=== PATIENT | female | born 1995 | race African-American/Black ===

== ENCOUNTER 2021-07-30 05:50 | Inpatient (IN) | payer OTHER ==
[2021-07-30] MEDS ORDERED: SODIUM CHLORIDE 0.9% 500 ML INFUS.BAG IV ONE (06:37)
[2021-07-30] MEDS ORDERED: ACETAMINOPHEN 1000 MG/100 ML VIAL (NON FORMULARY) IVPB ONE (06:37)
[2021-07-30] MEDS ORDERED: ONDANSETRON 4 MG/2 ML VIAL IVPUSH ONE (06:37)
[2021-07-30] MEDS ORDERED: ONDANSETRON 4 MG/2 ML VIAL ONE (06:58)
[2021-07-30] MEDS ORDERED: ACETAMINOPHEN INJECTION 100 ML IVPB ONE (06:58)
[2021-07-30 07:07] LABS: BASO % 0.7 % (0-2.0); EOS % 1.8 % (0-4.5); HEMATOCRIT 33.1 % (32.4-45.2); LYMPH % 50.9 % (8-40); MCH 27.7 pg (25.7-33.7); MCHC 33.3 g/dl (32.0-36.0); MEAN CELL VOLUME 83.1 fl (80-96); MONO % 11.4 % (3.8-10.2); NEUT % 35.2 % (42.8-82.8); PLATELET COUNT 163 10^3/uL (134-434); RBC 3.98 M/mm3 (3.60-5.2); RDW 13.7 % (11.6-15.6); WHITE BLOOD COUNT 3.6 K/mm3 (4.0-10.0)
[2021-07-30 07:14] LABS: INR 0.96 (0.83-1.09); PROTHROMBIN TIME (PATIENT) 11.6 SEC (9.7-13.0)
[2021-07-30 07:17] LABS: ACTIVATED PTT 30.6 SECONDS (25.2-36.5)
[2021-07-30 07:23] LABS: ALBUMIN 3.3 g/dl (3.4-5.0); CALCIUM 7.7 mg/dL (8.5-10.1)
[2021-07-30 07:24] LABS: BLOOD UREA NITROGEN 6.3 mg/dL (7-18)
[2021-07-30 07:27] LABS: CREATININE 0.6 mg/dL (0.55-1.3)
[2021-07-30 07:28] LABS: BILIRUBIN,TOTAL 0.2 mg/dL (0.2-1)
[2021-07-30 07:32] LABS: TOT PROT 7.4 g/dl (6.4-8.2)
[2021-07-30] MEDS ORDERED: morphine CARPU-JECT 2 MG/1 ML DISP.SYRIN IVPUSH ONE ×2 (08:28→12:40)
[2021-07-30 08:54] LABS: EPI CELLS 3 /uL (0-25.1); HYALINE CASTS 0 /uL (0-3.1); PH,URINE 7.5 (5.0-8.0); URINE APPEARANCE CLEAR; URINE BACTERIA 57 /uL (0-1359); URINE BILIRUBIN NEGATIVE (NEGATIVE); URINE COLOR YELLOW; URINE GLUCOSE (UA) NEGATIVE (NEGATIVE); URINE KETONE NEGATIVE (NEGATIVE); URINE LEUK ESTERASE NEGATIVE (NEGATIVE); URINE NITRITE NEGATIVE (NEGATIVE); URINE PROTEIN NEGATIVE (NEGATIVE); URINE RBC 3 /uL (0-23.9); URINE UROBILINOGEN 0.2 mg/dL (0.2-1.0); URINE WBC 9 /uL (0-25.8)
[2021-07-30] MEDS ORDERED: MORPHINE SULFATE 2 MG/ML VIAL ONE ×2 (09:00→12:57)
[2021-07-30 14:34] LABS: BLOOD UREA NITROGEN 4.2 mg/dL (7-18)
[2021-07-30 14:38] LABS: CREATININE 0.6 mg/dL (0.55-1.3)
[2021-07-30] MEDS ORDERED: MORPHINE SULFATE 2 MG/ML VIAL IVPUSH PRN (15:28)
[2021-07-30] MEDS ORDERED: ONDANSETRON 4 MG/2 ML VIAL IVPUSH PRN (15:30)
[2021-07-30] MEDS ORDERED: POLYETHYLENE GLYCOL 3350 119 GM BTL PO SCH (15:45)
[2021-07-30] MEDS: SODIUM CHLORIDE 1,000 ML IV SCH (16:15)
[2021-07-30] MEDS ORDERED: ALBUTEROL SO4 HFA INHALER IH PRN (16:27)
[2021-07-30] MEDS ORDERED: DOCUSATE SODIUM 100 MG CAPSULE (FP) PO ONE (16:45)
[2021-07-30] MEDS: POLYETHYLENE GLYCOL (HEALTHYLAX) 3350 17 GM PACKET PO SCH (19:45)
[2021-07-30] MEDS: DOCUSATE SODIUM 100 MG CAPSULE (FP) PO SCH (19:45)
[2021-07-30] MEDS: HYDROmorphone HCL 2 MG TABLET PO PRN (20:39)
[2021-07-30] MEDS ORDERED: SENNOSIDES 8.6MG TABLET (FP) PO SCH ×2 (22:00→22:14)
[2021-07-30] MEDS: SENNOSIDES 8.6MG TABLET (FP) PO SCH ×2 (22:24→22:25)
[2021-07-30] MEDS: MONTELUKAST NA 10 MG TABLET PO SCH (22:25)
[2021-07-30] MEDS: BICTEGRAV/EMTRICIT/TENOFOV (BIKTARVY) 50-200-25 MG TABLET PO SCH (22:26)
[2021-07-31] MEDS: HYDROmorphone HCL 2 MG TABLET PO PRN ×2 (06:04→11:37)
[2021-07-31 09:31] LABS: HEMATOCRIT 34.4 % (32.4-45.2); HEMOGLOBIN 11.5 GM/dL (10.7-15.3); MCH 27.9 pg (25.7-33.7); MCHC 33.4 g/dl (32.0-36.0); MEAN CELL VOLUME 83.4 fl (80-96); MEAN PLT VOLUME 9.5 fl (7.5-11.1); PLATELET COUNT 166 10^3/uL (134-434); RBC 4.12 M/mm3 (3.60-5.2); RDW 13.4 % (11.6-15.6); WHITE BLOOD COUNT 3.1 K/mm3 (4.0-10.0)
[2021-07-31 09:54] LABS: CHLORIDE 106 mmol/L (98-107); SODIUM 138 mmol/L (136-145)
[2021-07-31 09:58] LABS: ALBUMIN 3.1 g/dl (3.4-5.0); CALCIUM 7.9 mg/dL (8.5-10.1); GLUCOSE,RANDOM 92 mg/dL (74-106)
[2021-07-31 09:59] LABS: ANION GAP 5 MMOL/L (8-16); CO2 27 mmol/L (21-32); MAGNESIUM 1.7 mg/dL (1.8-2.4)
[2021-07-31 10:01] LABS: CREATININE 0.8 mg/dL (0.55-1.3); PHOSPHOROUS 3.5 mg/dL (2.5-4.9); SGOT/AST 98 U/L (15-37); SGPT/ALT 111 U/L (13-61)
[2021-07-31 10:02] LABS: BILIRUBIN,TOTAL 0.8 mg/dL (0.2-1); TOT PROT 7.1 g/dl (6.4-8.2)
[2021-07-31] MEDS: TAMSULOSIN HCL 0.4 MG CAP PO SCH (10:03)
[2021-07-31] MEDS: DOCUSATE SODIUM 100 MG CAPSULE (FP) PO SCH (10:03)
[2021-07-31] MEDS: ENOXAPARIN NA (PORCINE) 40 MG/0.4 ML DISP.SYRIN SQ SCH (10:03)
[2021-07-31] MEDS: POLYETHYLENE GLYCOL (HEALTHYLAX) 3350 17 GM PACKET PO SCH (10:03)
[2021-07-31] MEDS: SENNOSIDES 8.6MG TABLET (FP) PO SCH ×2 (10:03→22:24)
[2021-07-31 10:04] LABS: ALK PHOS 70 U/L (45-117)
[2021-07-31 10:14] LABS: BLOOD UREA NITROGEN 2.4 mg/dL (7-18)
[2021-07-31] MEDS ORDERED: METOCLOPRAMIDE HCL INJECTION 10 MG/2 ML VIAL IVPUSH ONE (10:15)
[2021-07-31] MEDS ORDERED: PROCHLORPERAZINE INJECTION 10 MG/2 ML VIAL IVPB ONE (11:00)
[2021-07-31 11:25] LABS: LIPASE 148 U/L (73-393)
[2021-07-31] MEDS: BICTEGRAV/EMTRICIT/TENOFOV (BIKTARVY) 50-200-25 MG TABLET PO SCH (13:00)
[2021-07-31] MEDS: SODIUM CHLORIDE 1,000 ML IV SCH (15:50)
[2021-07-31] MEDS ORDERED: HYDROmorphone HCL 2 MG TABLET PO PRN ×2 (19:09→19:33)
[2021-07-31] MEDS: MONTELUKAST NA 10 MG TABLET PO SCH (22:24)
[2021-08-01] MEDS ORDERED: HYDROmorphone HCL 2 MG TABLET PO PRN (01:14)
[2021-08-01] MEDS: TAMSULOSIN HCL 0.4 MG CAP PO SCH (08:10)
[2021-08-01 09:12] LABS: BASO % 0.3 % (0-2.0); EOS % 0.8 % (0-4.5); HEMATOCRIT 33.7 % (32.4-45.2); HEMOGLOBIN 11.4 GM/dL (10.7-15.3); LYMPH % 43.1 % (8-40); MCH 27.7 pg (25.7-33.7); MCHC 33.8 g/dl (32.0-36.0); MEAN CELL VOLUME 82.2 fl (80-96); MEAN PLT VOLUME 9.1 fl (7.5-11.1); MONO % 8.2 % (3.8-10.2); NEUT % 47.6 % (42.8-82.8); PLATELET COUNT 174 10^3/uL (134-434); RDW 13.5 % (11.6-15.6); WHITE BLOOD COUNT 4.4 K/mm3 (4.0-10.0)
[2021-08-01] MEDS ORDERED: PT OWN MED DRAWER 7, Y5N ONE (09:13)
[2021-08-01] MEDS: SODIUM CHLORIDE 1,000 ML IV SCH ×2 (09:19→15:34)
[2021-08-01] MEDS: DOCUSATE SODIUM 100 MG CAPSULE (FP) PO SCH (09:21)
[2021-08-01] MEDS: ENOXAPARIN NA (PORCINE) 40 MG/0.4 ML DISP.SYRIN SQ SCH (09:21)
[2021-08-01] MEDS: SENNOSIDES 8.6MG TABLET (FP) PO SCH ×2 (09:21→21:19)
[2021-08-01] MEDS: POLYETHYLENE GLYCOL (HEALTHYLAX) 3350 17 GM PACKET PO SCH (09:21)
[2021-08-01] MEDS: BICTEGRAV/EMTRICIT/TENOFOV (BIKTARVY) 50-200-25 MG TABLET PO SCH (09:21)
[2021-08-01 09:30] LABS: BLOOD UREA NITROGEN 4.8 mg/dL (7-18); CALCIUM 8.2 mg/dL (8.5-10.1)
[2021-08-01 09:31] LABS: ALBUMIN 3.1 g/dl (3.4-5.0)
[2021-08-01 09:34] LABS: CREATININE 0.8 mg/dL (0.55-1.3)
[2021-08-01 09:36] LABS: BILIRUBIN,TOTAL 0.8 mg/dL (0.2-1)
[2021-08-01] MEDS: KETOROLAC TROMETHAMINE 15 MG/ML VIAL IVPUSH PRN ×2 (11:51→18:52)
[2021-08-01] MEDS ORDERED: ACETAMINOPHEN 1000 MG/100 ML VIAL (NON FORMULARY) IVPB PRN ×2 (13:00→15:05)
[2021-08-01 15:51] VITALS: BMI 16.4
[2021-08-01] MEDS: MONTELUKAST NA 10 MG TABLET PO SCH (21:19)
[2021-08-02] MEDS: KETOROLAC TROMETHAMINE 15 MG/ML VIAL IVPUSH PRN (05:56)
[2021-08-02 08:04] LABS: BLOOD UREA NITROGEN 3.2 mg/dL (7-18); CALCIUM 8.2 mg/dL (8.5-10.1)
[2021-08-02 08:07] LABS: CREATININE 0.7 mg/dL (0.55-1.3)
[2021-08-02 08:08] LABS: BILIRUBIN,TOTAL 0.4 mg/dL (0.2-1)
[2021-08-02] MEDS: TAMSULOSIN HCL 0.4 MG CAP PO SCH (10:17)
[2021-08-02] MEDS: POLYETHYLENE GLYCOL (HEALTHYLAX) 3350 17 GM PACKET PO SCH (10:17)
[2021-08-02] MEDS: SENNOSIDES 8.6MG TABLET (FP) PO SCH ×2 (10:17→21:23)
[2021-08-02] MEDS: BICTEGRAV/EMTRICIT/TENOFOV (BIKTARVY) 50-200-25 MG TABLET PO SCH (10:18)
[2021-08-02] MEDS: ENOXAPARIN NA (PORCINE) 40 MG/0.4 ML DISP.SYRIN SQ SCH (10:18)
[2021-08-02] MEDS: IBUPROFEN 800 MG/8 ML IJ IVPB SCH ×2 (17:29→21:55)
[2021-08-02] MEDS: SODIUM CHLORIDE 1,000 ML IV SCH (17:32)
[2021-08-02] MEDS: DOCUSATE SODIUM 100 MG CAPSULE (FP) PO SCH (21:23)
[2021-08-02] MEDS: MONTELUKAST NA 10 MG TABLET PO SCH (21:23)
[2021-08-03] MEDS: IBUPROFEN 800 MG/8 ML IJ IVPB SCH ×4 (04:15→21:47)
[2021-08-03] MEDS: TAMSULOSIN HCL 0.4 MG CAP PO SCH (09:06)
[2021-08-03] MEDS ORDERED: PT OWN MED DRAWER 7, Y5N ONE (10:28)
[2021-08-03] MEDS: BICTEGRAV/EMTRICIT/TENOFOV (BIKTARVY) 50-200-25 MG TABLET PO SCH (10:42)
[2021-08-03] MEDS: SENNOSIDES 8.6MG TABLET (FP) PO SCH ×2 (10:42→21:44)
[2021-08-03] MEDS: POLYETHYLENE GLYCOL (HEALTHYLAX) 3350 17 GM PACKET PO SCH (10:42)
[2021-08-03] MEDS: ENOXAPARIN NA (PORCINE) 40 MG/0.4 ML DISP.SYRIN SQ SCH (10:56)
[2021-08-03] MEDS ORDERED: ACETAMINOPHEN 325 MG TABLET (FP) PO PRN (16:07)
[2021-08-03] MEDS ORDERED: PIPERACILLIN/TAZOBACTAM 3.375 GM VIAL IVPB ONE ×2 (18:31→18:32)
[2021-08-03] MEDS ORDERED: DEXTROSE 5%-WATER - 50 ML IVPB ONE ×2 (18:31→18:32)
[2021-08-03] MEDS: PIPERACILLIN/TAZOB 3.375 GM 3.375 GM in DEXTROSE 5%-WATER - 50 ML IVPB SCH (18:38)
[2021-08-03 19:54] LABS: EPI CELLS >36 /uL (0-25.1); HYALINE CASTS 9 /uL (0-3.1); URINE APPEARANCE TURBID; URINE BACTERIA >9,000 /uL (0-1359); URINE BILIRUBIN NEGATIVE (NEGATIVE); URINE COLOR YELLOW; URINE GLUCOSE (UA) NEGATIVE (NEGATIVE); URINE KETONE NEGATIVE (NEGATIVE); URINE LEUK ESTERASE 3+ (NEGATIVE); URINE NITRITE POSITIVE (NEGATIVE); URINE PROTEIN 2+ (NEGATIVE); URINE WBC 9685 /uL (0-25.8)
[2021-08-03 20:36] LABS: URINE RBC 574.4 /uL (0-23.9)
[2021-08-03] MEDS: SODIUM CHLORIDE 1,000 ML IV SCH (21:43)
[2021-08-03] MEDS: MONTELUKAST NA 10 MG TABLET PO SCH (21:44)
[2021-08-03] MEDS: DOCUSATE SODIUM 100 MG CAPSULE (FP) PO SCH (21:44)
[2021-08-04] MEDS ORDERED: DEXTROSE 5%-WATER - 50 ML IVPB ONE ×3 (01:26→16:59)
[2021-08-04] MEDS ORDERED: PIPERACILLIN/TAZOBACTAM 3.375 GM VIAL IVPB ONE ×3 (01:26→16:59)
[2021-08-04] MEDS: PIPERACILLIN/TAZOB 3.375 GM 3.375 GM in DEXTROSE 5%-WATER - 50 ML IVPB SCH ×5 (01:32→17:08)
[2021-08-04] MEDS: IBUPROFEN 800 MG/8 ML IJ IVPB SCH ×2 (04:22→13:15)
[2021-08-04] MEDS: ACETAMINOPHEN 325 MG TABLET (FP) PO PRN ×2 (06:25→18:20)
[2021-08-04 08:27] LABS: BASO % 0.1 % (0-2.0); HEMATOCRIT 33.1 % (32.4-45.2); HEMOGLOBIN 11.3 GM/dL (10.7-15.3); LYMPH % 15.5 % (8-40); MEAN CELL VOLUME 82.3 fl (80-96); MEAN PLT VOLUME 9.2 fl (7.5-11.1); MONO % 10.4 % (3.8-10.2); PLATELET COUNT 163 10^3/uL (134-434); RBC 4.02 M/mm3 (3.60-5.2); RDW 13.5 % (11.6-15.6); WHITE BLOOD COUNT 7.8 K/mm3 (4.0-10.0)
[2021-08-04 08:40] LABS: BLOOD UREA NITROGEN 7.4 mg/dL (7-18); CALCIUM 7.9 mg/dL (8.5-10.1)
[2021-08-04 08:43] LABS: CREATININE 0.8 mg/dL (0.55-1.3)
[2021-08-04] MEDS ORDERED: PT OWN MED DRAWER 7, Y5N ONE (09:15)
[2021-08-04] MEDS: TAMSULOSIN HCL 0.4 MG CAP PO SCH (09:25)
[2021-08-04] MEDS: BICTEGRAV/EMTRICIT/TENOFOV (BIKTARVY) 50-200-25 MG TABLET PO SCH (09:25)
[2021-08-04] MEDS: SENNOSIDES 8.6MG TABLET (FP) PO SCH (09:25)
[2021-08-04] MEDS: ENOXAPARIN NA (PORCINE) 40 MG/0.4 ML DISP.SYRIN SQ SCH (09:25)
[2021-08-04] MEDS: POLYETHYLENE GLYCOL (HEALTHYLAX) 3350 17 GM PACKET PO SCH (09:26)
[2021-08-04] MEDS: D5-1/2NS+40 MEQ KCL - 40 MEQ/1,000 ML INFUS.BAG IV SCH (11:08)
[2021-08-04] MEDS: MONTELUKAST NA 10 MG TABLET PO SCH (21:19)
[2021-08-05] MEDS ORDERED: PIPERACILLIN/TAZOBACTAM 3.375 GM VIAL IVPB ONE ×2 (00:49→10:16)
[2021-08-05] MEDS ORDERED: DEXTROSE 5%-WATER - 50 ML IVPB ONE ×2 (00:50→10:16)
[2021-08-05] MEDS: PIPERACILLIN/TAZOB 3.375 GM 3.375 GM in DEXTROSE 5%-WATER - 50 ML IVPB SCH ×3 (01:00→18:07)
[2021-08-05] MEDS: D5-1/2NS+40 MEQ KCL - 40 MEQ/1,000 ML INFUS.BAG IV SCH ×3 (01:08→10:26)
[2021-08-05] MEDS: ACETAMINOPHEN 325 MG TABLET (FP) PO PRN ×2 (03:46→21:39)
[2021-08-05] MEDS: TAMSULOSIN HCL 0.4 MG CAP PO SCH (08:34)
[2021-08-05 08:53] LABS: BASO % 0.1 % (0-2.0); EOS % 0.1 % (0-4.5); HEMATOCRIT 33.3 % (32.4-45.2); HEMOGLOBIN 11.2 GM/dL (10.7-15.3); LYMPH % 29.2 % (8-40); MCH 27.7 pg (25.7-33.7); MCHC 33.6 g/dl (32.0-36.0); MEAN CELL VOLUME 82.5 fl (80-96); MEAN PLT VOLUME 8.9 fl (7.5-11.1); MONO % 14.2 % (3.8-10.2); NEUT % 56.4 % (42.8-82.8); PLATELET COUNT 157 10^3/uL (134-434); RBC 4.04 M/mm3 (3.60-5.2); RDW 13.4 % (11.6-15.6)
[2021-08-05 09:10] LABS: CALCIUM 7.8 mg/dL (8.5-10.1)
[2021-08-05 09:11] LABS: ALBUMIN 2.8 g/dl (3.4-5.0); BLOOD UREA NITROGEN 5.5 mg/dL (7-18)
[2021-08-05 09:14] LABS: CREATININE 0.8 mg/dL (0.55-1.3)
[2021-08-05 09:15] LABS: BILIRUBIN,TOTAL 0.5 mg/dL (0.2-1)
[2021-08-05 09:16] LABS: TOT PROT 7.2 g/dl (6.4-8.2)
[2021-08-05] MEDS ORDERED: PT OWN MED DRAWER 7, Y5N ONE (10:16)
[2021-08-05] MEDS: ENOXAPARIN NA (PORCINE) 40 MG/0.4 ML DISP.SYRIN SQ SCH (10:25)
[2021-08-05] MEDS: BICTEGRAV/EMTRICIT/TENOFOV (BIKTARVY) 50-200-25 MG TABLET PO SCH (10:25)
[2021-08-05] MEDS: POLYETHYLENE GLYCOL (HEALTHYLAX) 3350 17 GM PACKET PO SCH (10:25)
[2021-08-05] MEDS ORDERED: ONDANSETRON 4 MG/2 ML VIAL IVPB PRN (10:48)
[2021-08-05] MEDS: IRON SUCROSE INJECTION 200 MG in SODIUM CHLORIDE 90 ML IVPB ONE ×2 (11:23→15:19)
[2021-08-05] MEDS: MONTELUKAST NA 10 MG TABLET PO SCH (21:39)
[2021-08-06] MEDS: PIPERACILLIN/TAZOB 3.375 GM 3.375 GM in DEXTROSE 5%-WATER - 50 ML IVPB SCH (03:00)
[2021-08-06 06:01] VITALS: BP 101/58; PULSE 72; TEMP 98.2
== END 2021-08-06 05:45 | disposition short-term general hospital (02) | DRG 532 ==
LOC: JER 05:50 → JERBED 12:09 → OBSVTOIN 15:28 → J6S 18:44
PROVIDERS: ADMIT Internal Medicine; ATTEND Internal Medicine
DX: N80.9 Endometriosis, unspecified (principal); R33.9 Retention of urine, unspecified; Z21 Asymptomatic human immunodeficiency virus [HIV] infection status; J45.909 Unspecified asthma, uncomplicated; I10 Essential (primary) hypertension; E78.5 Hyperlipidemia, unspecified; R10.2 Pelvic and perineal pain; N83.201 Unspecified ovarian cyst, right side; R10.11 Right upper quadrant pain; J90 Pleural effusion, not elsewhere classified; R35.8 Other polyuria; R50.9 Fever, unspecified; R64 Cachexia; Z68.1 Body mass index [BMI] 19.9 or less, adult; N84.1 Polyp of cervix uteri; N39.0 Urinary tract infection, site not specified
CPT/HCPCS: 36415; 71045-TC-FY; 74177-TC; 74181-TC; 74246-TC-FY; 76705-TC; 76775-TC; 76856-TC; 80048; 80053; 81003; 82728; 83540; 83550; 83605; 83690; 83735; 84100; 84703; 85025; 85027; 85045; 85610; 85651; 85730; 86140; 86304; 86704; 86705; 86803; 86850; 86900; 86901; 87040; 87086; 87340; 93005; 93010; 94010; 99285-25; C9803; G0378; J0131; J1756; Q9967; U0003; U0005